=== PATIENT | female | born 1990 ===

== ENCOUNTER 2024-07-16 14:42 | Outpatient (AMB) | payer BC, SELFPAY ==
--- NOTE | 2024-07-16 14:59 | MHC.OFFWIV ---
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 Patient Tobacco Use Status: Former Tobacco user Allergies sumatriptan Adverse Reaction (Severe, Verified 07/16/24 15:02) Palpitations Do you need a note to return to daycare/school/sports/work: No HPI HPI Comments History of Present Illness Details This is a 33-year-old female with no stated past medical history presenting for evaluation of vocal fatigue and a lump on the right side of her throat that she noted 3 days ago, which she describes as uncomfortable. 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 After singing over the past week she reports vocal fatigue and hoarseness. Patient denies having any fevers, chills, ear pain or difficulty swallowing. Patient has not taken any medication for treatment of her discomfort. [facility] Social History Patient Tobacco Use Status: Former Tobacco user Review of Systems Const All systems reviewed & are unremarkable except as noted in HPI and below Denies chills, Denies fatigue and Denies fever(s) Eyes Reports no additional complaints ENT Denies otalgia, Reports sore throat, Denies throat swelling and Denies tongue swelling Card Reports no additional complaints Resp Reports no additional complaints GI Reports no additional complaints Reports no additional complaints Musc Reports no additional complaints Skin/Breast Reports system reviewed and no additional complaints, except as documented Neuro Reports no additional complaints Psych Reports no additional complaints Endo Reports no additional complaints and Denies fatigue Ravi/Lymph Reports no additional complaints Aller/Immun Reports no additional complaints, Denies throat swelling and Denies tongue swelling Physical Exam Const General: cooperative, healthy appearing, comfortable, no acute distress, well developed, alert, awake and Physically active Nutritional Appearance: average body habitus Orientation/consciousness: patient oriented x3 Limitations: no limitations HEENT Head: Yes normal to inspection and Yes normocephalic Ears: hearing grossly normal bilaterally, external ears normal, TM's normal bilaterally and EAC's normal General nose exam: Normal external nose present Face and sinus: Yes normal facial exam and Yes sinuses nontender Mouth: Normal oral and palatal mucosa present, oropharynx normal and moist mucous membranes Teeth and gingiva: dentition normal Throat: Yes posterior oropharynx normal, Yes uvula midline, No peritonsillar mass, No posterior oropharynx abnormal, No uvula laterally displaced and No uvular edema Eyes General: appearance normal, both eyes and all related structures Neuro General: patient oriented x3 Psych Appearance: grossly normal Mental Status: mental status grossly normal Insight: Good insight present (Psych) Judgement: Good judgement present (Psych) Assessment & Plan Assessment & Plan (1) Pharyngitis: Comment: It was not possible to visualize the area of concern. Patient is speaking in full sentences, is not drooling, does not have a muffled voice and uvula is midline. Patient will be discharged home with Naprosyn. Code(s): J02.9 - Acute pharyngitis, unspecified Qualifiers: Pharyngitis/tonsillitis etiology: unspecified etiology Qualified Code(s): J02.9 - Acute pharyngitis, unspecified Plan: Enteric-coated Naprosyn twice daily, increase clear fluids, follow up with ENT if concern persists. Medications: New naproxen (EC-Naprosyn) 500 mg PO BID 20 tabs 0RF Coding Level of Care Code New Pt Level 4 (41979) Diagnoses Pharyngitis, unspecified etiology J02.9 Pharyngitis/tonsillitis etiology: unspecified etiology Time Spent (min) 20
[2024-07-16 15:03] VITALS: BP 124/80; PULSE 82; O2SAT 98; BMI 30.2
--- OUTSIDE RECORDS SUMMARY | 2024-07-16 17:33 | XMS_ITS ---
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
== END 2024-07-16 15:57 | disposition home or self-care (01) ==
LOC: HO.HMCWIC 14:42
PROVIDERS: Visit Provider Physician Assistant
DX: J02.9 Acute pharyngitis, unspecified (principal)

== ENCOUNTER → 2024-07-16 14:42 | Outpatient (BNVA) | payer BC, SELFPAY | PROVIDERS: Visit Provider Physician Assistant | DX: Z13.89 Encounter for screening for other disorder (principal) ==